=== PATIENT | female | born 1965 | race Caucasian/White ===

== ENCOUNTER 2018-05-02 07:47 | Day surgery (SDC) | payer OTHER ==
[~2018-05-02 07:47] MED LIST: CEFAZOLIN 2 GM/50 ML (PMX) 50 ML IVPB; SOD CHLORIDE 0.9% 1,000 ML IV
[2018-05-02 12:11] LABS: ADD MAN DIFF? NO
[2018-05-02 12:13] LABS: WHITE BLOOD COUNT 5.2 10^3/ul (4.8-10.8)
[2018-05-02 12:13] LABS: BASOPHIL # 0.1 10^3/ul (0.0-0.1); EOSINOPHILS # 0.1 10^3/ul (0.0-0.5); EOSINOPHILS % 2.7 % (0.0-7.0); HEMATOCRIT 36.8 % (37.0-47.0); LYMPHOCYTES # 1.9 10^3/ul (0.8-2.9); LYMPHOCYTES % 35.8 % (15.0-51.0); MEAN CORPUSCULAR HEMOGLOBIN 29.5 pg (29.0-33.0); MEAN CORPUSCULAR HGB CONC 32.6 g/dl (32.0-37.0); MEAN CORPUSCULAR VOLUME 90.4 fl (82.0-101.0); MEAN PLATELET VOLUME 10.3 fl (7.4-10.4); MONOCYTE # 0.5 10^3/ul (0.3-0.9); MONOCYTES % 9.1 % (0.0-11.0); NEUTROPHIL # 2.6 10^3/ul (1.6-7.5); NEUTROPHILS % 50.8 % (39.0-77.0); PLATELET COUNT 233 10^3/UL (140-415); RED BLOOD COUNT 4.07 10^6/ul (4.20-5.40); RED CELL DISTRIBUTION WIDTH 13.1 % (11.5-14.5)
[2018-05-02] MEDS ORDERED: CEFAZOLIN 1 GM INJ (12:30)
[2018-05-02] MEDS ORDERED: LIDOCAINE 2% (SDV) 5 ML INJ (12:30)
[2018-05-02] MEDS ORDERED: ROCURONIUM 50 MG INJ (12:31)
[2018-05-02] MEDS ORDERED: PROPOFOL 20 ML (12:31)
[2018-05-02] MEDS ORDERED: ONDANSETRON 4 MG INJ (12:31)
[2018-05-02] MEDS ORDERED: MIDAZOLAM 1 MG/ML 2 ML INJ (12:31)
[2018-05-02] MEDS ORDERED: FENTAnyl 50 MCG/ML VIAL (12:32)
[2018-05-02 12:39] LABS: INR 0.96; PROTIME 12.9 Sec (11.9-14.9)
[2018-05-02 12:45] LABS: ALANINE AMINOTRANSFERASE 34 IU/L (13-69); ALBUMIN 3.8 g/dl (3.3-4.9); ALBUMIN/GLOBULIN RATIO 1.18; ALKALINE PHOSPHATASE 55 IU/L (42-121); ANION GAP 13 (8-16); ASPARTATE AMINO TRANSFERASE 25 IU/L (15-46); BILIRUBIN,INDIRECT 0.4 mg/dl (0-1.1); BILIRUBIN,TOTAL 0.4 mg/dl (0.2-1.3); CARBON DIOXIDE 27 mmol/L (21-31); CHLORIDE 109 mmol/L (97-110); GLUCOSE 101 mg/dl (70-220)
[2018-05-02 12:47] LABS: BLOOD UREA NITROGEN 14 mg/dl (7-20); CALCIUM 8.9 mg/dl (8.4-10.2); POTASSIUM 4.3 mmol/L (3.5-5.1); SODIUM 145 mmol/L (135-144)
[2018-05-02] MEDS ORDERED: HYDROmorphONE (0.2 MG/ML) 10ML SYG IV (13:30)
[2018-05-02] MEDS ORDERED: FENTAnyl 50 MCG/ML VIAL IV (13:30)
[2018-05-02] MEDS ORDERED: ONDANSETRON 4 MG INJ IV (13:30)
[2018-05-02] MEDS ORDERED: DEXAMETHASONE 4 MG/ML 1 ML INJ (13:45)
[2018-05-02] MEDS ORDERED: SUGAMMADEX SODIUM 200 MG/2 ML VIAL IV (14:18)
[2018-05-02] MEDS ORDERED: EPHEDrine SULFATE 50 MG/5 ML SYG (14:24)
[2018-05-02] MEDS ORDERED: HYDROCODONE/APAP (7.5/325) TAB PO (15:00)
[2018-05-02] MEDS: HYDROmorphONE (0.2 MG/ML) 10ML SYG IV ×2 (15:34→15:41)
== END 2018-05-02 17:50 | disposition home or self-care (01) ==
LOC: SDS 07:47
DX: D05.11 Intraductal carcinoma in situ of right breast (principal); E66.01 Morbid (severe) obesity due to excess calories; Z68.39 Body mass index [BMI] 39.0-39.9, adult
CPT/HCPCS: 19301; 71045; 80053; 84703; 85025; 85610; 85730; 88307; 88341; 88342; 93005

== ENCOUNTER 2018-06-20 11:36 | Observation (INO) | payer OTHER ==
[~2018-06-20 11:36] MED LIST changes: -CEFAZOLIN 2 GM/50 ML (PMX) 50 ML IVPB
[2018-06-20 12:26] LABS: ADD MAN DIFF? NO
[2018-06-20 12:27] LABS: WHITE BLOOD COUNT 5.5 10^3/ul (4.8-10.8)
[2018-06-20 12:27] LABS: BASOPHIL # 0.1 10^3/ul (0.0-0.1); BASOPHILS % 0.9 % (0.0-2.0); EOSINOPHILS # 0.1 10^3/ul (0.0-0.5); EOSINOPHILS % 2.5 % (0.0-7.0); HEMATOCRIT 37.5 % (37.0-47.0); HEMOGLOBIN 12.4 g/dl (12.0-16.0); LYMPHOCYTES # 1.8 10^3/ul (0.8-2.9); LYMPHOCYTES % 33.1 % (15.0-51.0); MEAN CORPUSCULAR HEMOGLOBIN 29.7 pg (29.0-33.0); MEAN CORPUSCULAR HGB CONC 33.1 g/dl (32.0-37.0); MEAN CORPUSCULAR VOLUME 89.7 fl (82.0-101.0); MEAN PLATELET VOLUME 10.1 fl (7.4-10.4); MONOCYTE # 0.5 10^3/ul (0.3-0.9); MONOCYTES % 8.5 % (0.0-11.0); NEUTROPHILS % 54.5 % (39.0-77.0); PLATELET COUNT 240 10^3/UL (140-415); RED BLOOD COUNT 4.18 10^6/ul (4.20-5.40); RED CELL DISTRIBUTION WIDTH 12.4 % (11.5-14.5)
[2018-06-20 12:45] LABS: ALANINE AMINOTRANSFERASE 43 IU/L (13-69); ALBUMIN 3.8 g/dl (3.3-4.9); ALBUMIN/GLOBULIN RATIO 1.22; ALKALINE PHOSPHATASE 49 IU/L (42-121); ANION GAP 11 (8-16); ASPARTATE AMINO TRANSFERASE 26 IU/L (15-46); BILIRUBIN,INDIRECT 0.3 mg/dl (0-1.1); BILIRUBIN,TOTAL 0.3 mg/dl (0.2-1.3); BLOOD UREA NITROGEN 12 mg/dl (7-20); CARBON DIOXIDE 24 mmol/L (21-31); CHLORIDE 109 mmol/L (97-110); GLUCOSE 105 mg/dl (70-220); POTASSIUM 4.3 mmol/L (3.5-5.1); SODIUM 140 mmol/L (135-144); TOTAL PROTEIN 6.9 g/dl (6.1-8.1)
[2018-06-20 12:47] LABS: INR 0.92; PROTIME 12.4 Sec (11.9-14.9)
[2018-06-20 12:48] LABS: PARTIAL THROMBOPLASTIN TIME 27.1 Sec (25.0-35.0)
[2018-06-20] MEDS ORDERED: DEXAMETHASONE 4 MG/ML 1 ML INJ (13:18)
[2018-06-20] MEDS ORDERED: FENTAnyl 50 MCG/ML VIAL ×2 (13:18→14:18)
[2018-06-20] MEDS ORDERED: NEOSTIGMINE 3 MG/3 ML SYRINGE (13:18)
[2018-06-20] MEDS ORDERED: ONDANSETRON 4 MG INJ (13:18)
[2018-06-20] MEDS ORDERED: ROCURONIUM 50 MG INJ (13:18)
[2018-06-20] MEDS ORDERED: MIDAZOLAM 1 MG/ML 2 ML INJ (13:18)
[2018-06-20] MEDS ORDERED: CEFAZOLIN 1 GM INJ (13:18)
[2018-06-20] MEDS ORDERED: PROPOFOL 20 ML (13:18)
[2018-06-20] MEDS ORDERED: GLYCOPYRROLATE 0.4 MG INJ (13:18)
[2018-06-20] MEDS ORDERED: TRIMETHOBENZAMIDE 100 MG/ML VIAL IM (13:30)
[2018-06-20] MEDS ORDERED: MIDAZOLAM 1 MG/ML 2 ML INJ IV (13:30)
[2018-06-20] MEDS ORDERED: OXYCODONE/ACETAMINOPHEN (5/325) TAB PO ×2 (13:30)
[2018-06-20] MEDS ORDERED: FENTAnyl 50 MCG/ML VIAL IV ×3 (13:30)
[2018-06-20] MEDS ORDERED: DIPHENHYDRAMINE 50 MG INJ IV (13:30)
[2018-06-20] MEDS ORDERED: IPRATROPIUM (NEB) 0.5 MG/2.5 ML AMP HHN (13:30)
[2018-06-20] MEDS ORDERED: hydrALAzine 20 MG INJ IV (13:30)
[2018-06-20] MEDS ORDERED: LABETALOL HCL 20MG INJ IV (13:30)
[2018-06-20] MEDS ORDERED: ALBUTEROL 0.083% (NEB) 2.5 MG/3 ML AMP HHN (13:30)
[2018-06-20] MEDS ORDERED: EPHEDrine SULFATE 50 MG/5 ML SYG IV (13:30)
[2018-06-20] MEDS ORDERED: HYDROmorphONE 1 MG/5 ML IV SYRINGE IV (13:30)
[2018-06-20] MEDS ORDERED: MEPERIDINE 25 MG INJ IV (13:30)
[2018-06-20] MEDS ORDERED: SUGAMMADEX SODIUM 200 MG/2 ML VIAL IV (14:57)
[2018-06-20] MEDS ORDERED: METOCLOPRAMIDE 10 MG INJ (14:59)
[2018-06-20] MEDS ORDERED: KETOROLAC 30 MG INJ (14:59)
[2018-06-20] MEDS: ONDANSETRON 4 MG INJ IV (15:59)
[2018-06-20] MEDS: HYDROmorphONE 1 MG/5 ML IV SYRINGE IV ×3 (15:59→16:15)
[2018-06-20] MEDS ORDERED: ONDANSETRON 4 MG INJ IV (16:00)
[2018-06-20] MEDS ORDERED: NACL 0.9% 3 ML SYG IV (16:00)
[2018-06-20] MEDS ORDERED: morphine 2 MG INJ IV (16:00)
[2018-06-20] MEDS: CEFAZOLIN 2 GM/50 ML (PMX) 50 ML IVPB (16:10)
[2018-06-20] MEDS: IBUPROFEN 600 MG TAB PO (18:00)
[2018-06-20] MEDS: DEXTROSE 5%-0.45% NACL 1,000 ML IV (20:00)
[2018-06-21] MEDS: IBUPROFEN 400 MG TAB PO ×4 (00:04→18:42)
[2018-06-21] MEDS: DEXTROSE 5%-0.45% NACL 1,000 ML IV (05:20)
[2018-06-21 13:54] LABS: ADD MAN DIFF? NO
[2018-06-21 13:56] LABS: WHITE BLOOD COUNT 6.8 10^3/ul (4.8-10.8)
[2018-06-21 13:56] LABS: BASOPHILS % 0.6 % (0.0-2.0); EOSINOPHILS # 0.1 10^3/ul (0.0-0.5); HEMATOCRIT 36.3 % (37.0-47.0); HEMOGLOBIN 11.9 g/dl (12.0-16.0); LYMPHOCYTES # 1.6 10^3/ul (0.8-2.9); MEAN CORPUSCULAR HEMOGLOBIN 30.3 pg (29.0-33.0); MEAN CORPUSCULAR HGB CONC 32.8 g/dl (32.0-37.0); MEAN CORPUSCULAR VOLUME 92.4 fl (82.0-101.0); MEAN PLATELET VOLUME 10.1 fl (7.4-10.4); MONOCYTE # 0.7 10^3/ul (0.3-0.9); NEUTROPHIL # 4.3 10^3/ul (1.6-7.5); PLATELET COUNT 229 10^3/UL (140-415); RED BLOOD COUNT 3.93 10^6/ul (4.20-5.40); RED CELL DISTRIBUTION WIDTH 12.5 % (11.5-14.5)
[2018-06-21 14:15] LABS: ANION GAP 10 (8-16); BLOOD UREA NITROGEN 12 mg/dl (7-20); CALCIUM 8.9 mg/dl (8.4-10.2); CARBON DIOXIDE 27 mmol/L (21-31); CHLORIDE 107 mmol/L (97-110); CREATININE 0.63 mg/dl (0.44-1.00); GLUCOSE 104 mg/dl (70-220); POTASSIUM 4.5 mmol/L (3.5-5.1); SODIUM 139 mmol/L (135-144)
[2018-06-22] MEDS: IBUPROFEN 400 MG TAB PO ×3 (00:10→12:00)
== END 2018-06-22 12:48 | disposition home or self-care (01) ==
LOC: SDS 11:36 → REC 15:55 → MS1 18:45
DX: D05.11 Intraductal carcinoma in situ of right breast (principal); E66.01 Morbid (severe) obesity due to excess calories; Z68.41 Body mass index [BMI] 40.0-44.9, adult
CPT/HCPCS: 19307; 80048; 80053; 84703; 85025; 85610; 85730; 88307